=== PATIENT | male | born 1955 | race Caucasian/White ===

== ENCOUNTER → 2017-02-16 | Outpatient (CLI) | payer MEDICAID ==
--- NOTE | 2017-02-16 13:49 | RADIOLOGY REPORT PS360 ---
US RUQ-(ABD LTD)1ORGAN/QUAD/FU HISTORY: Right upper quadrant pain GERD ORDERING PHYSICIAN: Gómez Ott MD PATIENT AGE: 62 years COMPARISON: None FINDINGS: EXAM somewhat limited secondary to patient's inability to breath-hold PANCREAS:Obscured by overlying gas LIVER:No focal liver lesions demonstrated. Homogeneous echogenicity. No intrahepatic biliary ductal dilatation evident RIGHT KIDNEY:Unremarkable. Normal size and echogenicity. No hydronephrosis GALLBLADDER:No gallstones, gallbladder wall thickening, pericholecystic fluid, or biliary dilatation. IMPRESSION: Unremarkable right upper quadrant ultrasound. Pancreas is not well delineated.
== END ==
LOC: RAD 08:33
DX: K21.9 Gastro-esophageal reflux disease without esophagitis (principal)

== ENCOUNTER → 2017-02-24 | Outpatient (CLI) | payer MEDICAID ==
[2017-02-24 12:07] LABS: BUN 5 mg/dL (7-18); HEMOGLOBIN 15.9 g/dL (14.1-18.0)
[2017-02-24 12:08] LABS: LYMPH % 15.1 % (10-50)
[2017-02-24 12:09] LABS: GFR (ESTIMATED) 169 ML/MIN (>60)
== END ==
LOC: LAB 10:13
PROVIDERS: Surgery
DX: Z13.810 Encounter for screening for upper gastrointestinal disorder (principal); Z01.810 Encounter for preprocedural cardiovascular examination; Z01.811 Encounter for preprocedural respiratory examination; Z01.812 Encounter for preprocedural laboratory examination

== ENCOUNTER 2017-03-11 09:03 | Day surgery (SDC) | payer MEDICAID ==
[~2017-03-11] VITALS: Ht 172.7 cm; Wt 65.8 kg
--- NOTE | 2017-03-11 10:00 | Operative Note ---
Surgeon/Diagnoses Surgeon/Lace Roller Operator(s) Date of procedure: 03/11/17 Surgeon: MD Richard Mckenzie Diagnoses Pre-op diagnosis: Heartburn Gastroesophageal reflux LEFT upper quadrant pain Nausea Post-op diagnosis Same as preoperative diagnoses, with the addition of the following: Gastritis (mild) Procedure Procedure Procedure: Esophagogastroduodenoscopy with biopsy Indications: LE AGUILAR is a 62 year-old Male with a history of heartburn, reflux, LEFT upper quadrant pain, and intermittent nausea. Findings: Gastroesophageal junction at 38 mm Mild inflammatory response and GE junction Mild gastritis (more pronounced distally) Procedure Description: After informed consent was obtained, the patient was taken to the endoscopy suite. Monitored anesthesia care ensued after he was transferred to the LEFT lateral decubitus position. The gastroscope was advanced. The gastroesophageal junction was at 38 cm. Inflammatory changes were noted and a biopsy was obtained at the time of gastroscope removal. Once the stomach was entered mild gastritis was noted. The inflammatory changes were more pronounced distally. Retroflexion revealed mild inflammation. Antral biopsies were obtained. The pylorus was intubated. The duodenal mucosa appeared normal. The gastroscope was carefully removed and the patient was transferred to recovery. EBL (ml): 1 Anesthesia: Monitored anesthesia care Complications: No immediate Specimens: Antral biopsy Gastroesophageal junction biopsy Disposition Disposition: Stable to recovery from where he will be discharged home. He will follow up in one week. at [id number]
[2017-03-11 10:25] VITALS: BP 126/85
== END 2017-03-11 10:23 | disposition home or self-care (01) ==
LOC: SDC 09:03
PROC: 0DB78ZX Excision of Stomach, Pylorus, Via Natural or Artificial Opening Endoscopic, Diagnostic (ICD-10-PCS; principal; 2017-03-11)
DX: K21.9 Gastro-esophageal reflux disease without esophagitis (principal); R10.12 Left upper quadrant pain; K29.70 Gastritis, unspecified, without bleeding